=== PATIENT | female | born 1975 | race African-American/Black ===

== ENCOUNTER 2020-01-04 07:12 | Outpatient (CLI) | payer OTHER, SELFPAY ==
--- NOTE | ~2020-01-04 | MM_ITS ---
EXAMINATION: MM screening radha BI w natanael HISTORY: Screening TECHNIQUE: Craniocaudal and mediolateral oblique 3-D tomosynthesis images were obtained and synthetic 2-D images were generated. CAD analysis was submitted and interpreted. COMPARISON: Comparison to multiple prior studies sequentially, with oldest reviewed study dated 12/12. BREAST PARENCHYMAL COMPOSITION: The breasts are extremely dense, which lowers the sensitivity of mamm ography. FINDINGS: There is no evidence of suspicious mass, calcification, or architectural distortion to sugg est malignancy in either breast. There has been no suspicious interval change. IMPRESSION: 1. No mammographic evidence of malignancy. 2. Recommend routine screening mammography in one year. BI-RADS Category 1: Negative Reviewed, dictated and finalized at location A.
== END 2020-01-04 07:13 | disposition home or self-care (01) ==
LOC: ANHIMG 07:13
PROVIDERS: PCP Internal Medicine; Visit Provider Obstetrics & Gynecology
DX: Z12.31 Encounter for screening mammogram for malignant neoplasm of breast (principal)
CPT/HCPCS: 77063; 77067

== ENCOUNTER 2020-04-23 10:57 | Outpatient (CLI) | payer OTHER, SELFPAY ==
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
== END 2020-04-23 10:58 | disposition home or self-care (01) ==
LOC: ANHIMG 11:01
PROVIDERS: PCP Internal Medicine; Visit Provider Internal Medicine
DX: M54.6 Pain in thoracic spine (principal)
CPT/HCPCS: 72070

== ENCOUNTER 2020-04-30 06:39 | Outpatient (CLI) | payer OTHER, SELFPAY ==
--- NOTE | ~2020-04-30 | MR_ITS ---
EXAMINATION: MR thoracic spine wo con DATE: 04/30/2020 07:58 INDICATION: Collapsed vertebra, not elsewhere classified. TECHNIQUE: Magnetic resonance imaging (MRI) of the thoracic spine was performed without intravenous c ontrast. Sagittal localizer T1-weighted FSE of the cervical spine was obtained. Thoracic spine sequen [place]en[place] included sagittal T2-weighted FSE, sagittal T1-weighted FSE, sagittal STIR FSE, and axial T2-weig hted FSE. COMPARISON: Thoracic spine radiographs 04/23/2020 FINDINGS: Bone alignment is normal. Vertebral body heights and intervertebral disc heights are normal . At T10-T11, there is a left foraminal protrusion. There is multilevel mild facet joint osteoarthrit is. There is mild neural foraminal stenosis bilaterally at T1-T2 and on the left at T10-T11. No centr al canal stenosis. The spinal cord signal intensity is normal. IMPRESSION: 1. No fracture. 2. Mild thoracic spondylosis. Reviewed, dictated and finalized at location B. OR OF CHIROPRA[employer]IC
== END 2020-04-30 06:40 | disposition home or self-care (01) ==
LOC: ANHIMG 06:42
PROVIDERS: PCP Internal Medicine; Visit Provider Internal Medicine
DX: M48.54XA Collapsed vertebra, not elsewhere classified, thoracic region, initial encounter for fracture (principal); M47.894 Other spondylosis, thoracic region
CPT/HCPCS: 72146

== ENCOUNTER 2020-05-10 07:16 | Outpatient (CLI) | payer OTHER, SELFPAY ==
--- NOTE | ~2020-05-10 | MR_ITS ---
EXAMINATION: MR cervical spine wo con DATE: 05/10/2020 08:21 INDICATION: Cervical spondylosis with radiculopathy. TECHNIQUE: Magnetic resonance imaging (MRI) of the cervical spine was performed without intravenous c ontrast. Sequences included sagittal T2-weighted FSE, sagittal STIR FSE, sagittal T1-weighted FSE, ax ial MERGE, and axial T2-weighted FSE. COMPARISON: Cervical spine radiographs 10/14/2016 FINDINGS: There is mild kyphosis of cervical spine. Vertebral body heights and intervertebral disc he ights are normal. The spinal cord signal intensity is normal. The following disc levels are specifica lly discussed: C2-C3: The disc does not extend beyond the endplate margin. There is no uncovertebral joint osteoarth ritis. There is mild bilateral facet joint osteoarthritis. There is no neural foraminal stenosis. The re is no central canal stenosis. C3-C4: The disc does not extend beyond the endplate margin. There is no uncovertebral joint osteoarth ritis. There is mild right facet joint osteoarthritis. There is no neural foraminal stenosis. There i s no central canal stenosis. C4-C5: There is a central extrusion. There is no uncovertebral joint osteoarthritis. There is no face t joint osteoarthritis. There is no neural foraminal stenosis. There is mild central canal stenosis. C5-C6: There is a central extrusion. There is no uncovertebral joint osteoarthritis. There is mild le ft facet joint osteoarthritis. There is no neural foraminal stenosis. There is mild central canal delano nosis. C6-C7: The disc does not extend beyond the endplate margin. There is mild left uncovertebral joint os teoarthritis. There is no facet joint osteoarthritis. There is no neural foraminal stenosis. There is no central canal stenosis. C7-T1: The disc does not extend beyond the endplate margin. There is no uncovertebral joint osteoarth ritis. There is mild bilateral facet joint osteoarthritis. There is no neural foraminal stenosis. The re is no central canal stenosis. IMPRESSION: 1. Mild cervical spondylosis. Reviewed, dictated and finalized at location A. AZZO TILE SETTER
== END 2020-05-10 07:17 | disposition home or self-care (01) ==
PROVIDERS: PCP Internal Medicine; Visit Provider Internal Medicine
DX: M47.22 Other spondylosis with radiculopathy, cervical region (principal)
CPT/HCPCS: 72141

== ENCOUNTER 2020-06-14 12:43 | Outpatient (CLI) | payer OTHER, SELFPAY ==
--- NOTE | ~2020-06-14 | MMUS_ITS ---
EXAMINATION: MM diagnostic radha RT w natanael, US breast RT limited HISTORY: Lump in right breast area near sternum TECHNIQUE: ML, MLO and craniocaudal full field and spot 3-D tomosynthesis images of the right breast were performed and synthetic 2-D images were generated. CAD analysis was submitted and interpreted. H igh resolution targeted ultrasound at the area of clinical complaint of lump was performed. COMPARISON: 01/04/2020 bilateral digital screening mammogram BREAST PARENCHYMAL COMPOSITION: The breasts are extremely dense, which lowers the sensitivity of mamm ography. FINDINGS: MAMMOGRAPHIC FINDINGS: No suspicious mass, architectural distortion, malignant calcification, skin thickening or retraction or significant new or developing density of the right breast is evident compared to 01/04/2020. Again noted are some scattered benign calcifications. ULTRASOUND: The area of complaint of lump corresponds to the sternum itself. No soft tissue mass is detected at t he area of clinical complaint. IMPRESSION: 1. No mammographic evidence of malignancy 2. Routine annual mammographic screening is recommended. BI-RADS Category 2: Benign finding(s). Reviewed, dictated and finalized at location A. LE SCHOOL MATH TEACHER IMPRESSION: 1. No mammographic evidence of malignancy 2. Routine annual mammographic screening is recommended. BI-RADS Category 2: Benign finding(s).
== END 2020-06-14 12:44 | disposition home or self-care (01) ==
LOC: ANHIMG 12:46
PROVIDERS: PCP Internal Medicine; Visit Provider Obstetrics & Gynecology
DX: N63.10 Unspecified lump in the right breast, unspecified quadrant (principal)
CPT/HCPCS: 76642; 77061; 77065; G0279

== ENCOUNTER 2021-01-09 07:28 | Outpatient (CLI) | payer OTHER, SELFPAY ==
--- NOTE | ~2021-01-09 | MM_ITS ---
EXAMINATION: MM screening radha BI w natanael HISTORY: Screening mammogram, family history of breast cancer in her sister. TECHNIQUE: Craniocaudal and mediolateral oblique 3-D tomosynthesis images were obtained and synthetic 2-D images were generated. CAD analysis was submitted and interpreted. COMPARISON: 06/14/2020, 01/04/2020, 12/23/2018 BREAST PARENCHYMAL COMPOSITION: The breasts are extremely dense, which lowers the sensitivity of mamm ography. FINDINGS: There is no evidence of suspicious mass, calcification, or architectural distortion to sugg est malignancy in either breast. There has been no suspicious interval change. IMPRESSION: 1. No mammographic evidence of malignancy. 2. Recommend routine screening mammography in one year. BI-RADS Category 1: Negative Reviewed, dictated and finalized at location A.
== END 2021-01-09 07:29 | disposition home or self-care (01) ==
PROVIDERS: PCP Internal Medicine; Visit Provider Obstetrics & Gynecology
DX: Z12.31 Encounter for screening mammogram for malignant neoplasm of breast (principal)
CPT/HCPCS: 77063; 77067

== ENCOUNTER 2022-03-31 07:07 | Outpatient (CLI) | payer OTHER, SELFPAY ==
--- NOTE | ~2022-03-31 | MM_ITS ---
EXAMINATION: MM screening radha BI w natanael HISTORY: Screening mammogram TECHNIQUE: Craniocaudal and mediolateral oblique 3-D tomosynthesis images were obtained and synthetic 2-D images were generated. CAD analysis was submitted and interpreted. COMPARISON: 01/09/2021 06/14/2020 diagnostic right mammogram and limited right breast ultrasound examination 01/04/2020, 01/12/2019 bilateral screening mammogram examinations BREAST PARENCHYMAL COMPOSITION: The breasts are extremely dense, which lowers the sensitivity of mamm ography. FINDINGS: There is no evidence of suspicious mass, calcification, or architectural distortion to sugg est malignancy in either breast. There has been no suspicious interval change. IMPRESSION: 1. No mammographic evidence of malignancy. 2. Recommend routine screening mammography in one year. BI-RADS Category 1: Negative Reviewed, dictated and finalized at location A. GED CARE NURSE
== END 2022-03-31 07:08 | disposition home or self-care (01) ==
PROVIDERS: PCP Internal Medicine; Visit Provider Obstetrics & Gynecology
DX: Z12.31 Encounter for screening mammogram for malignant neoplasm of breast (principal)
CPT/HCPCS: 77063; 77067

== ENCOUNTER 2023-04-01 16:43 | Outpatient (CLI) | payer OTHER, SELFPAY ==
--- NOTE | ~2023-04-01 | MM_ITS ---
EXAMINATION: MM screening radha BI w natanael HISTORY: Screening TECHNIQUE: Craniocaudal and mediolateral oblique 3-D tomosynthesis images were obtained and synthetic 2-D images were generated. CAD analysis was submitted and interpreted. COMPARISON: Comparison to multiple prior studies sequentially, with oldest reviewed study dated 12/21. BREAST PARENCHYMAL COMPOSITION: The breasts are extremely dense, which lowers the sensitivity of mamm ography FINDINGS: There is no evidence of suspicious mass, calcification, or architectural distortion to sugg est malignancy in either breast. There has been no suspicious interval change. IMPRESSION: 1. No mammographic evidence of malignancy. 2. Recommend routine screening mammography in one year. BI-RADS Category 1: Negative Reviewed, dictated and finalized at location A. JACK NOZZLE WORKER
== END 2023-04-01 16:44 | disposition home or self-care (01) ==
PROVIDERS: PCP Internal Medicine; Visit Provider Obstetrics & Gynecology
DX: Z12.31 Encounter for screening mammogram for malignant neoplasm of breast (principal)
CPT/HCPCS: 77063; 77067

== ENCOUNTER 2024-07-03 16:46 | Outpatient (CLI) | payer OTHER, SELFPAY ==
--- NOTE | ~2024-07-03 | XR_ITS ---
HISTORY: Acute spine pain COMPARISON: None TECHNIQUE: 2 views of the thoracic spine were performed FINDINGS: No acute compression fracture is present. Bone mineralization is age-appropriate. No significant degenerative disease. IMPRESSION: Unremarkable radiographic evaluation of the thoracic spine, as detailed above. Reviewed, dictated and finalized at location A. ACY SPECIALIST
--- NOTE | ~2024-07-03 | XR_ITS ---
HISTORY: Acute spine pain COMPARISON: 10/14/2016 TECHNIQUE: 2 views of the cervical spine were performed. FINDINGS: Visualization of the cervical spine to the inferior endplate of T1. Straightening and slight reversal of the normal curvature of the cervical spine is identified, possib ly muscular in origin. No prevertebral soft tissue swelling is appreciated. A large anterior osteophyte is redemonstrated at the level of C6/C7. No acute compression fracture is noted. The dens is equidistant between the pillars, without asymmetry. Air column within the trachea is midline. The visualized portions of the bilateral upper lung pereira are unremarkable. IMPRESSION: Degenerative disease, primarily at the level of C6/C7 without acute fracture, as detailed above. Reviewed, dictated and finalized at location A. EL REAMER IMPRESSION: Degenerative disease, primarily at the level of C6/C7 without acute fracture, a s detailed above.
== END 2024-07-03 16:47 | disposition home or self-care (01) ==
LOC: MICIMG 16:48
PROVIDERS: PCP Chiropractor; Visit Provider Chiropractor
DX: M50.323 Other cervical disc degeneration at C6-C7 level (principal); M54.6 Pain in thoracic spine
CPT/HCPCS: 72040; 72070